=== PATIENT | female | born 1980 | race Caucasian/White ===

== ENCOUNTER 2021-01-01 07:35 | Outpatient (CLI) | payer OTHER, SELFPAY ==
--- NOTE | ~2021-01-01 | MM_ITS ---
EXAMINATION: MM screening [facility] w [facility] HISTORY: Screening mammogram TECHNIQUE: Craniocaudal and mediolateral oblique 3-D tomosynthesis images were obtained and synthetic 2-D images were generated. CAD analysis was submitted and interpreted. COMPARISON: No prior mammogram is available for comparison at this institution. BREAST PARENCHYMAL COMPOSITION: There are scattered areas of fibroglandular density. FINDINGS: There is no evidence of suspicious mass, calcification, or architectural distortion to sugg est malignancy in either breast.. IMPRESSION: 1. No mammographic evidence of malignancy. 2. Recommend routine screening mammography in one year. BI-RADS Category 1: Negative Reviewed, dictated and finalized at location A. INE LACER
== END 2021-01-01 07:36 | disposition home or self-care (01) ==
LOC: ANHIMG 07:37
PROVIDERS: PCP Family Medicine; Visit Provider Family Medicine
DX: Z12.31 Encounter for screening mammogram for malignant neoplasm of breast (principal)
CPT/HCPCS: 77063; 77067

== ENCOUNTER → 2021-04-28 01:24 | Outpatient (CLI) | payer OTHER, SELFPAY ==
[2021-04-30 08:34] LABS: SARS-CoV-2 RNA PCR Negative
== END ==
PROVIDERS: PCP Family Medicine; Visit Provider Internal Medicine Gastroenterology
DX: Z01.812 Encounter for preprocedural laboratory examination (principal); Z20.822 Contact with and (suspected) exposure to COVID-19
CPT/HCPCS: C9803; U0003; U0005

== ENCOUNTER 2021-04-30 08:00 | Outpatient (CLI) | payer OTHER, SELFPAY ==
[2021-04-30 09:40] LABS: EDCOVIDSCREEN Negative (Negative)
== END 2021-04-30 08:01 | disposition home or self-care (01) ==
LOC: ANHSURGERY 06-01 11:29
PROVIDERS: PCP Family Medicine; Visit Provider Internal Medicine Gastroenterology
DX: Z01.812 Encounter for preprocedural laboratory examination (principal); Z20.822 Contact with and (suspected) exposure to COVID-19
CPT/HCPCS: 36415; 87426; C9803

== ENCOUNTER 2021-05-01 01:15 | Day surgery (SDC) | payer OTHER, SELFPAY ==
[2021-04-14 13:28] VITALS: BMI 32.0
--- NOTE | 2021-04-30 12:29 | WPDANESEPPF ---
Anes - Initial Pre Proc Eval Procedure: Operation Date: 05/01/21 09:00 Proposed Procedures p Colonoscopy - Mick Pérez MD Date/Time: 04/30/21 12:29 Surgeon: Mick Pérez MD Pre Op Diagnosis: change in bowel habits Patient Data Age: 40 Gender: F Height: 1.6 m Weight: 82 kg Allergies Allergy/AdvReac Type Severity Reaction Status Date / Time Penicillins Allergy Unknown Skin Verified 05/01/21 07:44 Reaction Home Medications Medication Instructions Recorded Confirmed Type desogestrel 0.15 mg-ethinyl 1 tablet PO DAILY #84 tablet 11/27/20 05/01/21 Rx estradiol 0.03 mg tablet Laboratory Tests 04/30/21 09:18 SARS-CoV-2 IgG/IgM Ag?Rapid Negative (Negative) Patient hx anesthesia problems: none Family hx anesthesia problems: none PMFSH Past Medical History Medical History (Updated 04/30/21 @ 12:29 by Amos Saavedra MD) Acne vulgaris Alopecia COVID-25 September 2020 Obesity Undiagnosed cardiac murmurs Family History Family History Grandparent Diabetes mellitus Hypertension Family history of cardiovascular disease Carcinoma of colon Father Depression Mother Family history of glaucoma Social History Social History Smoking packs per day: 0.5 Smoking cigarettes per day: 10.0 Years smoked: 5 Smoking pack-years: 2.50 Smoking status: Former smoker Tobacco type: cigarettes Smoking end date: 11/07/06 Alcohol intake: never Living arrangements: with family Spiritual care concerns: No Anes - Eval Final PreProcedure Day of Procedure 04/30/21 12:29 Patient weight: overweight Heart: regular rate and rhythm Lungs: clear to auscultation and normal air movement Airway: Mallampati scale class II Neurological: alert and oriented Last oral intake: >/= 8 hours ASA classification: II Emergent: no Anesthetic plan: proceed Anesthesia type and monitoring: general GIVS Informed Consent: The patient's anesthetic plan and its attendant risks and benefits were discussed with the patient/family/POA. Questions were solicited and answers provided to the satisfaction of the patient/family/POA.
[2021-05-01 07:46] VITALS: BP 136/65; PULSE 95; RESP 16; TEMP 35.7; O2SAT 100; BMI 33.0
[2021-05-01] MEDS: LACTATED RINGERS 1,000 ML 150 ML IV CONT (07:56)
--- NOTE | 2021-05-01 08:38 | WPDGICN ---
Assessment and Plan Assessment and plan (1) Change in bowel habits: Code(s): R19.4 - Change in bowel habit Status: Acute Assessment and Plan: Patient has new alteration in her bowel habits. Plan is to evaluate with colonoscopy. Fiber supplementation such as Metamucil daily is advised. (2) Family history of colonic polyps: Code(s): Z83.71 - Family history of colonic polyps Status: Acute Assessment and Plan: Patient's mother has had colon polyps in her grandmother had colon cancer. Plan is for surveillance colonoscopy now and consider this at 5 year intervals in the future. GI Consult Note Consult date/time: 05/01/21 08:38 HPI: Michelle Bryson is a 40 year old female presents for screening colonoscopy. Her mother has had colon polyps. Her grandmother had colon cancer. Patient recently notices change in bowel habit since November of 2019. Previously constipated patient now has soft stools in the morning. She denies any bleeding. She denies any weight loss. She denies abdominal pain. Review of Systems Review of Systems: All systems reviewed & are unremarkable except as noted in HPI and below PMFSH Past Medical History Medical History (Updated 05/01/21 @ 08:40 by Mick Pérez MD) Acne vulgaris Alopecia COVID-25 September 2020 Obesity Undiagnosed cardiac murmurs Family History Family History Grandparent Diabetes mellitus Hypertension Family history of cardiovascular disease Carcinoma of colon Father Depression Mother Family history of glaucoma Social History Social History Smoking packs per day: 0.5 Smoking cigarettes per day: 10.0 Years smoked: 5 Smoking pack-years: 2.50 Smoking status: Former smoker Tobacco type: cigarettes Smoking end date: 11/07/06 Alcohol intake: never Living arrangements: with family Spiritual care concerns: No Meds Home Medications and Allergies Home Medications Medication Instructions Recorded Confirmed Type desogestrel 0.15 mg-ethinyl 1 tablet PO DAILY #84 tablet 11/27/20 05/01/21 Rx estradiol 0.03 mg tablet Allergies Allergy/AdvReac Type Severity Reaction Status Date / Time Penicillins Allergy Unknown Skin Verified 05/01/21 07:44 Reaction Vital Signs Vital Signs - 24 hr 05/01/21 07:46 Temperature 96.3 F L Pulse Rate 95 Respiratory Rate 16 Blood Pressure 136/65 Pulse Oximetry 100 Exam Narrative: Exam Narrative: Physical exam reveals patient be alert. Vital signs stable. HEENT exam unremarkable. Patient is anicteric. Lungs are clear to auscultation and percussion. Heart is without murmur or extra sounds. Abdominal exam bowel sounds are present soft nontender with no organomegaly. Digital external rectal exam is normal.
[2021-05-01 09:49] VITALS: BP 107/62; PULSE 88; RESP 21; O2SAT 100
[2021-05-01 09:59] VITALS: BP 117/81; PULSE 70; RESP 17; O2SAT 100
[2021-05-01 10:09] VITALS: BP 128/77; PULSE 73; RESP 16; O2SAT 100
== END 2021-05-01 10:16 | disposition home or self-care (01) ==
PROVIDERS: PCP Family Medicine; Visit Provider Internal Medicine Gastroenterology
PROC: 0DJD8ZZ Inspection of Lower Intestinal Tract, Via Natural or Artificial Opening Endoscopic (ICD-10-PCS; CPT 45378; principal; 2021-05-01 09:00)
DX: R19.4 Change in bowel habit (principal); K63.5 Polyp of colon; K64.8 Other hemorrhoids; Z83.71 Family history of colonic polyps; Z86.16 Personal history of COVID-19; E66.9 Obesity, unspecified; Z68.33 Body mass index [BMI] 33.0-33.9, adult; Z87.891 Personal history of nicotine dependence
CPT/HCPCS: 45385; 36415; 87426; 88305; C9803; J2001; J2704; J7120; U0003; U0005

== ENCOUNTER 2022-01-14 16:53 | Outpatient (CLI) | payer OTHER, SELFPAY ==
--- NOTE | ~2022-01-14 | MM_ITS ---
EXAMINATION: MM screening [facility] w [facility] HISTORY: Screening TECHNIQUE: Craniocaudal and mediolateral oblique 3-D tomosynthesis images were obtained and synthetic 2-D images were generated. CAD analysis was submitted and interpreted. COMPARISON: 01/01/2021 BREAST PARENCHYMAL COMPOSITION: There are scattered areas of fibroglandular density. FINDINGS: There is no evidence of suspicious mass, calcification, or architectural distortion to sugg est malignancy in either breast. There has been no suspicious interval change. IMPRESSION: 1. No mammographic evidence of malignancy. 2. Recommend routine screening mammography in one year. BI-RADS Category 1: Negative Reviewed, dictated and finalized at location A. ESSOR GRAIN
== END 2022-01-14 16:54 | disposition home or self-care (01) ==
PROVIDERS: PCP Family Medicine; Visit Provider Family Medicine
DX: Z12.31 Encounter for screening mammogram for malignant neoplasm of breast (principal)
CPT/HCPCS: 77063; 77067

== ENCOUNTER 2022-08-13 12:45 | Outpatient (CLI) | payer OTHER, SELFPAY ==
--- NOTE | ~2022-08-13 | XR_ITS ---
EXAMINATION: XR hip LT min 2V DATE: 08/13/2022 13:18 INDICATION: Left hip pain. TECHNIQUE: 2 views of left hip were obtained. COMPARISON: None. FINDINGS: Bone alignment is normal. No fracture. Left hip joint space is normal. IMPRESSION: 1. Normal left hip. Reviewed, dictated and finalized at location B. IMPRESSION: 1. Normal left hip.
--- NOTE | ~2022-08-13 | XR_ITS ---
XR ankle LT min 3V 08/13/2022 13:18 INDICATION: Left ankle pain PROCEDURE: 4 views left ankle COMPARISON: No prior studies for comparison. FINDINGS: Fracture, dislocation or subluxation is not identified. The soft tissues appear within norm al limits. No foreign bodies are identified. IMPRESSION: 1: NO ACUTE BONE OR JOINT ABNORMALITY IDENTIFIED. Reviewed, dictated and finalized at location A.
== END 2022-08-13 12:46 | disposition home or self-care (01) ==
LOC: ANHIMG 12:48
PROVIDERS: PCP Family Medicine; Visit Provider Physician Assistant
DX: M25.572 Pain in left ankle and joints of left foot (principal); M25.552 Pain in left hip
CPT/HCPCS: 73502; 73610

== ENCOUNTER 2023-03-10 08:27 | Outpatient (CLI) | payer OTHER, SELFPAY ==
--- NOTE | ~2023-03-10 | MM_ITS ---
EXAMINATION: MM screening [facility] w [facility] HISTORY: Screening mammogram TECHNIQUE: Craniocaudal and mediolateral oblique 3-D tomosynthesis images were obtained and synthetic 2-D images were generated. CAD analysis was submitted and interpreted. COMPARISON: 01/14/2022, 08/31/2021 BREAST PARENCHYMAL COMPOSITION:There are scattered areas of fibroglandular density. FINDINGS: No suspicious mass, calcification, or architectural distortion are identified in either livan ast to suggest malignancy. There has been no suspicious interval change. IMPRESSION: No mammographic evidence of malignancy. Recommend routine screening mammography in one year. BI-RADS Category 1: Negative Reviewed, dictated and finalized at location .
== END 2023-03-10 08:28 | disposition home or self-care (01) ==
LOC: ANHIMG 08:29
PROVIDERS: PCP Family Medicine; Visit Provider Family Medicine
DX: Z12.31 Encounter for screening mammogram for malignant neoplasm of breast (principal)
CPT/HCPCS: 77063; 77067

== ENCOUNTER 2024-05-11 17:24 | Emergency (ER) | payer OTHER, SELFPAY ==
[2024-05-11 17:34] VITALS: BP 108/71; PULSE 89; RESP 16; TEMP 36.6; O2SAT 100
--- NOTE | 2024-05-11 18:08 | ED.BACK ---
HPI - Back Pain/Injury General Chief Complaint: Back Pain/Injury Stated Complaint: BACK PAIN Time Seen by Provider: 05/11/24 18:00 Source: patient and RN notes reviewed Mode of arrival: ambulatory Limitations: no limitations History of Present Illness HPI Narrative: Patient presents today complaining of right-sided low back pain. Injury occurred when she was pulling leads and dumping a wheelbarrow contents around 9:00 a.m. today. Reports radiation to the right buttock. Denies numbness or tingling. Denies loss of bowel or bladder control. She has been taking Tylenol and naproxen with little relief. Pain increases with movement. Related Data Allergies Allergy/AdvReac Type Severity Reaction Status Date / Time Penicillins Allergy Unknown Skin Verified 12/12/23 16:00 Reaction Review of Systems Review of Systems: CONSTITUTIONAL: Denies body aches, fever, chills, or sweats. EYES: Denies visual changes, redness, or discharge. ENT: Denies rhinorrhea, congestion, sore throat, or otalgia. CARDIOVASCULAR: Denies chest pain, palpitations, or edema. RESPIRATORY: Denies cough or dyspnea. GASTROINTESTINAL: Denies abdominal pain, nausea, vomiting, or diarrhea. GENITOURINARY: Denies dysuria or hematuria. SKIN: Denies rash, itching, or wounds. MUSCULOSKELETAL: Denies joint pain, or myalgia.+ back pain NEUROLOGIC: Denies headache, numbness, tingling, or weakness. PSYCH: Denies depression or anxiety. [facility] Past Medical History Medical History Acne vulgaris Alopecia Change in bowel habits COVID-25 September 2020 Obesity Undiagnosed cardiac murmurs Surgical History Surgical History Hx of colonoscopy 6.28.21 polyp/repeat in 5 years Family History Family History Grandparent Diabetes mellitus Hypertension Family history of cardiovascular disease Carcinoma of colon Father Depression Mother Family history of glaucoma Social History Social History Smoking packs per day: 0.5 Smoking cigarettes per day: 10.0 Years smoked: 5 Smoking pack-years: 2.50 Smoking status: Never smoker Tobacco type: cigarettes Smoking end date: 11/07/06 Alcohol intake: never Substance use: never Substance use type: does not use Lack of Transportation: No Lack of Food: Never True Current Housing: I Have Housing Concerned About Future Housing: No Difficulty Paying Gas/Electric Bills: No Difficulty Paying for Meds: No Currently Unemployed: No Education: Bachelor's Degree Difficulty w/ Childcare or Family Care: No Living arrangements: with family Occupation/Education: occupation Gender identity (if verbalized by the patient): Female Spiritual care concerns: No Agree to blood products: Yes Comments At time of signature, I have reviewed and agree with nursing past medical, surgical, social and family history unless otherwise noted. Please see nursing chart for further information. There is no relevant family history pertinent to the presenting complaint Exam Narrative: GENERAL: Well-appearing, well-nourished, and in no acute distress. HEAD: Normocephalic, atraumatic. EYES: EOMI. No redness or drainage. Conjunctivae normal. ENT: Mucous membranes pink and moist. NECK: Normal AROM. CHEST: No respiratory distress. MUSCULOSKELETAL: No bony tenderness of the spine. Patient has mild right lower lumbar paraspinal muscle tenderness. Pain extends to the right buttock, but the tenderness does not. Distal sensation intact. Saddle sensation intact. Capillary refill normal. Pedal pulses normal. Dorsiflexion and plantar flexion equal and strong against resistance. Patellar reflexes 2+. EXTREMITIES: Normal range of motion. No edema. SKIN: Warm, dry, no
== END 2024-05-11 18:32 | disposition home or self-care (01) ==
PROVIDERS: Emergency Provider Nurse Practitioner; PCP Family Medicine
DX: S39.012A Strain of muscle, fascia and tendon of lower back, initial encounter (principal); X50.3XXA Overexertion from repetitive movements, initial encounter; Y93.H2 Activity, gardening and landscaping; L65.9 Nonscarring hair loss, unspecified; E66.9 Obesity, unspecified; Z68.31 Body mass index [BMI] 31.0-31.9, adult; Z86.16 Personal history of COVID-19
CPT/HCPCS: 99213; G0463

== ENCOUNTER 2024-05-17 16:34 | Outpatient (CLI) | payer OTHER, SELFPAY ==
--- NOTE | ~2024-05-17 | MM_ITS ---
EXAMINATION: MM screening [facility] BI w eligio HISTORY: Screening mammogram TECHNIQUE: Craniocaudal and mediolateral oblique 3-D tomosynthesis images were obtained and synthetic 2-D images were generated. CAD analysis was submitted and interpreted. COMPARISON: 03/10/2023, 01/14/2022, 01/01/2021 BREAST PARENCHYMAL COMPOSITION:Not Dense. There are scattered areas of fibroglandular density. FINDINGS: No suspicious mass, calcification, or architectural distortion are identified in either livan ast to suggest malignancy. There has been no suspicious interval change. IMPRESSION: No mammographic evidence of malignancy. Recommend routine screening mammography in one year. BI-RADS Category 1: Negative Reviewed, dictated and finalized at location .
== END 2024-05-17 16:35 | disposition home or self-care (01) ==
PROVIDERS: PCP Family Medicine; Visit Provider Family Medicine
DX: Z12.31 Encounter for screening mammogram for malignant neoplasm of breast (principal)
CPT/HCPCS: 77063; 77067

== ENCOUNTER 2024-11-22 08:02 | Emergency (ER) | payer OTHER, SELFPAY ==
[2024-11-22 08:18] VITALS: BP 125/85; PULSE 103; RESP 16; TEMP 36.8; O2SAT 100
--- NOTE | 2024-11-22 08:29 | ED_ITS ---
HPI - URI/Sore Throat General Chief Complaint: Ear Stated Complaint: EARACHE/[place]ANDS/CONGESITON Time Seen by Provider: 11/22/24 08:15 Source: patient and RN notes reviewed Mode of arrival: ambulatory Limitations: no limitations History of Present Illness HPI Narrative: Patient presents today of 5 day history of nasal congestion, postnasal drainage, slight cough. She woke up with left ear pain this morning and has developed hoarseness in her voice over the last couple of days. She has had 2- COVID tests at home has been has been sick with similar symptoms this week. Denies known fever or shortness of breath. She has tried a decongestant/antihistamine combination and has been recently recommended by her PCP to start Mucinex. Related Data Home Medications ?Medication ?Instructions ?Recorded ?Confirmed ?Last Taken ?Type fluoxetine 10 mg capsule mg 11/22/24 Unknown History Allergies Allergy/AdvReac Type Severity Reaction Status Date / Time Penicillins Allergy Unknown Skin Verified 11/22/24 08:15 Reaction Review of Systems Review of Systems: CONSTITUTIONAL: Denies body aches, fever, chills, or sweats. EYES: Denies visual changes, redness, or discharge. ENT: Denies rhinorrhea, sore throat.+ congestion, left ear pain, postnasal drip, hoarseness CARDIOVASCULAR: Denies chest pain, palpitations, or edema. RESPIRATORY: Denies dyspnea.+ slight cough GASTROINTESTINAL: Denies abdominal pain, nausea, vomiting, or diarrhea. GENITOURINARY: Denies dysuria or hematuria. SKIN: Denies rash, itching, or wounds. MUSCULOSKELETAL: Denies back pain, joint pain, or myalgia. NEUROLOGIC: Denies headache, numbness, tingling, or weakness. PSYCH: Denies depression or anxiety. [facility] Past Medical History Medical History Change in bowel habits Obesity COVID-25 September 2020 Acne vulgaris Alopecia Undiagnosed cardiac murmurs Surgical History Surgical History Hx of colonoscopy 6.28.21 polyp/repeat in 5 years Family History Family History Grandparent Diabetes mellitus Hypertension Family history of cardiovascular disease Carcinoma of colon Father Depression Mother Family history of glaucoma Social History Social History Smoking packs per day: 0.5 Smoking cigarettes per day: 10.0 Years smoked: 5 Smoking pack-years: 2.50 Smoking status: Former smoker Tobacco type: cigarettes Smoking end date: 11/07/06 Alcohol intake: never Substance use: never Substance use type: does not use Lack of Transportation: No Lack of Food: Never True Current Housing: I Have Housing Concerned About Future Housing: No Difficulty Paying Gas/Electric Bills: No Difficulty Paying for Meds: No Currently Unemployed: No Education: Bachelor's Degree Difficulty w/ Childcare or Family Care: No Living arrangements: with family Occupation/Education: occupation Gender identity (if verbalized by the patient): Female Spiritual care concerns: No Agree to blood products: Yes Comments At time of signature, I have reviewed and agree with nursing past medical, surgical, social and family history unless otherwise noted. Please see nursing chart for further information. There is no relevant family history pertinent to the presenting complaint Exam Narrative: GENERAL: Well-appearing, well-nourished, and in no acute distress. HEAD: Normocephalic, atraumatic. EYES: EOMI. No redness or drainage. Conjunctivae normal. ENT: Mucous membranes pink and moist. Nares very congested. No rhinorrhea. Left mild serous effusion without evidence of bacterial infection. Right TM normal. Throat normal with small amount of green postnasal drainage. Uvula midline. Voice hoarse. NECK: Normal AROM. Supple. Bilateral posterior cervical chain lymphadenopathy. CHEST: No respiratory distress. Clear to auscultation. HEART: Regular rate and rhythm. No murmur appreciated. EXTREMITIES: Normal range of motion. No edema. SKIN: Warm, dry, no rash. Capillary refill normal. Normal skin turgor. NEURO: No focal deficits. Alert and oriented x3. Gait steady. PSYCH: Normal affect. No signs of depression or anxiety. Course Course Level of Care: Express Care Visit Vital Signs Vital signs: Vital Signs Temperature 98.2 F 11/22/24 08:18 Pulse Rate 103 H 11/22/24 08:18 Respiratory Rate 16 11/22/24 08:18 Blood Pressure 125/85 11/22/24 08:18 Pulse Oximetry 100 11/22/24 08:18 Temperature 98.2 F 11/22/24 08:18 Pulse Rate 103 H 11/22/24 08:18 Respiratory Rate 16 11/22/24 08:18 Blood Pressure 125/85 11/22/24 08:18 Pulse Oximetry 100 11/22/24 08:18 Reviewed MDM - URI/Sore Throat MDM Narrative Medical decision making narrative: Symptoms likely viral in etiology. Discussed [id number] medication use and duration of illness. Short course of prednisone given, as patient states she has a speech in a few days and at this time is unable to speak well due to PND and hoarseness. Anticipatory guidance given. Differential Diagnosis Differential diagnosis: Likely upper respiratory infection, otitis media, sinusitis, viral infection and other (Pneumonia) Critical Care Time Critical Care Time Critical Care Time: No Discharge Plan Discharge Clinical Impression: Upper respiratory infection Qualifiers: URI type: unspecified URI Qualified Code(s): J06.9 - Acute upper respiratory infection, unspecified Patient Disposition: Home, Self-Care Condition: Stable Instructions: Upper Respiratory Infection (DC) Additional Instructions: Your symptoms are likely due to a viral illness, which is not treated with antibiotics. Virus symptoms can last for up to 7-14days. Take Tylenol or ibuprofen for pain or fever. Continue decongestant such as Sudafed. Consider a steroid nasal spray such as Flonase. Rest and stay hydrated. Follow up with your PCP in 5 days if symptoms are not improving. Go to the ER immediately if you develop shortness of breath, difficulty swallowing, or any other concerning symptoms. Your blood pressure was elevated above 120/80 today at Urgent Care. This puts you above the threshold for follow up. Please schedule a followup visit with your personal physician as soon as possible, for further evaluation and treatment. Even blood pressure exceeding 120/80 may indicate pre-hypertension. Patient Language: Vietnamese Prescriptions: New prednisone 50 mg tablet 50 mg PO DAILY 5 Days Qty: 5 0RF No Action fluoxetine 10 mg capsule desogestrel-ethinyl estradiol [Enskyce] 0.15-0.03 mg tablet See Rx Instructions .ROUTE .COMPLEX Qty: 84 0RF Dose Instruction: TAKE 1 TABLET DAILY Rx Instructions: TAKE 1 TABLET DAILY. due for an appointment in Dec tirzepatide (weight loss) 10 mg/0.5 mL pen injector 10 mg subcut WEEKLY Qty: 6 2RF Follow-up/Referrals: Ratna Gonzalez MD [Primary Care Provider] - Time of Disposition: 08:38
== END 2024-11-22 08:41 | disposition home or self-care (01) ==
PROVIDERS: Emergency Provider Nurse Practitioner; PCP Family Medicine
DX: J06.9 Acute upper respiratory infection, unspecified (principal); Z87.891 Personal history of nicotine dependence
CPT/HCPCS: 99213; G0463